=== PATIENT | female | born 1945 | race Caucasian/White ===

== ENCOUNTER 2023-07-02 09:44 | Outpatient (AMB) | payer MEDICARE, SELFPAY ==
--- NOTE | 2023-07-02 09:49 | A.OFFVIS_ITS ---
Intake Vital Signs 07/02/23 09:50 Height 4 ft 11 in Weight 167 lb BMI 33.7 BP 130/64 Blood Pressure Location Lt brachial Position Sitting Pulse 83 Pulse Source Pulse Oximeter Pulse Oximetry (%) 93 Oxygen Delivery Method Nasal Cannula Oxygen Flow Rate 3 Intake Visit Reasons: COPD Intake Note: pt is here for a new patient and she states she has a lot of trouble breathing and a cough that seems to be getting worse, non productive she knows it is there but doesn' come out. Waste Reduction Coordinator Required: No Allergies penicillin G [Penicillin G] Allergy (Unknown, Unverified 07/02/23 10:32) RASH,HIVES Seafood Allergy (Unknown, Uncoded 07/02/23 10:32) THROAT CLOSES Medication List - Last Reconciled 07/02/23 by Kimani Gilbert MD acetaminophen 325 mg PO QID PRN aspirin 325 mg PO DAILY atorvastatin 40 mg PO DAILY promtangaw-dqzdibmo-ttfexktbpd 160-9-4.8 mcg/actuation (Breztri Aerosphere) 2 inhalations inhalation BID calcium carbonate (Calcium) 600 mg PO DAILY docusate sodium 100 mg PO DAILY fluticasone propionate 50 mcg/actuation (Flonase Allergy Relief) 1 spray intranasal DAILY furosemide 20 mg PO DAILY gabapentin 300 mg PO BEDTIME ipratropium-albuterol 0.5 mg-3 mg(2.5 mg base)/3 mL 3 mL inhalation QID PRN loratadine 10 mg PO DAILY multivitamin,tx-minerals 1 tab PO DAILY sacubitril-valsartan 24-26 mg (Entresto) 1 tab PO BID sennosides (senna) 8.6 mg PO BEDTIME Do you need a note to return to daycare/school/sports/work: No HPI COPD HPI Details THIS 77 YEARS OLD FEMALE IS HERE FOR THE 1ST TIME FOR PULMONARY EVALUATION AND, ONGOING FOLLOW-UP. SHE CAME WITH HER SON WHO IS A STATION SUPERINTENDENT IN [facility], AND HE WAS HELPFUL IN OBTAINING THE HISTORY, EVEN THOUGH THE PATIENT HERSELF IS QUITE ALERT AND AWARE OF HER MEDICAL ISSUES. FOR THE PAST FEW YEARS SHE IS LIVING AT AN ASSISTED LIVING FACILITY IN [place], SHE FOLLOWS UP WITH HER PRIMARY CARE PHYSICIAN DR. ARVIZU OF [facility], AND SHE IS ALSO BEING FOLLOWED BY COMMUNITY NURSE , WHO CHECKS ON HER REGULARLY. THIS PATIENT IS MODERATELY OBESE, WITH A ROUND FACE, SHORT NECK, BUT SHE DENIES ANY SLEEP DISORDER, AND WHEN I MENTIONED OBSTRUCTIVE SLEEP APNEA SHE DEFINITELY SAID NO. SHE HAS HISTORY OF SMOKING SINCE THE YOUNGER AGE, HALF PACK A DAY FOR ALMOST 50 YEARS BUT QUIT 20 YEARS AGO. PATIENT WAS ADMITTED TO [facility] TWICE AFTER SOME FALLS, AND DURING 1 OF THE HOSPITALIZATIONS HER O2 SATS REMAINED LOW TO THE POINT THAT SHE HAD TO BE STARTED ON OXYGEN THERAPY. SHE CONTINUES TO USE OXYGEN 24 HOURS A DAY, AT 2 L/MINUTE. SHE HAS HAD 6 MINUTES WALK TEST AT HER PRIMARY CARE PHYSICIAN'S OFFICE. SHE WAS ALSO DIAGNOSED TO HAVE CHRONIC OBSTRUCTIVE PULMONARY DISEASE SINCE A FEW YEARS AGO, AND HAS BEEN TREATED WITH ALMOST MAXIMUM MEDICAL REGIMEN. MEDICAL REGIMEN INCLUDES BREZTRI 2 PUFFS B.I.D., AND DUONEB UPDRAFTS Q.I.D., SHE USES THE UPDRAFTS REGULARLY. SHE SAY IS SHE HAS HAD PULMONARY FUNCTION TEST AT [facility], WE ARE GOING TO TRY TO GET A COPY OF THAT FOR OUR RECORDS. HER BREATHING STATUS HAS REMAINED VERY STABLE, HER MAIN COMPLAINT IS COUGH DUE TO IRRITATION DEEP DOWN IN THE THROAT, SHE HAS DIFFICULT TIME IN CLEARING THE MUCUS. AND SHE ALSO FEELS SHORT OF BREATH WHEN SHE HAS TO WALK FROM THE DINING ROOM TO HER APARTMENT ( IT IS IS SOMEWHAT LONG DISTANCE FOR HER ) BUT AT THE SAME TIME SHE FEELS, THAT IT IS IMPORTANT FOR HER TO DO WALKING DAILY. SO THIS SHORTNESS OF BREATH ON WALKING IS NOT BOTHERING HER MUCH. LATELY SHE HAS HAD NO ACUTE RESPIRATORY INFECTION, AND SHE IS UP TO DATE WITH VACCINES. [facility] Medical History COPD (chronic obstructive pulmonary disease) Hypoxemia Restrictive lung disease Review of Systems Const All systems reviewed & are unremarkable except as noted in HPI and below Eyes Reports no additional complaints ENT Reports no additional complaints Card Denies chest pain, Denies irregular heart rhythm and Denies leg edema Resp Reports as per HPI GI Details: Past history of diverticulitis, status post colon resection with colostomy, which was reversed later on. Reports no additional complaints Reports no additional complaints Musc Reports no additional complaints Skin/Breast Reports system reviewed and no additional complaints, except as documented Neuro Reports no additional complaints Psych Reports no additional complaints Physical Exam Vital Signs: Last Vital Signs Pulse 83 07/02/23 09:50 BP 130/64 07/02/23 09:50 Pulse Ox 93 07/02/23 09:50 Oxygen Delivery Method Nasal Cannula 07/02/23 09:50 Oxygen Flow Rate 3 07/02/23 09:50 BMI result Body Mass Index 33.7 Patient is moderately obese with short neck and round face, Const General: comfortable, no acute distress, alert and awake Orientation/consciousness: patient oriented x3 HEENT Head: Yes normal to inspection General nose exam: No nasal polyps present and No nasal discharge present Face and sinus: Yes sinuses nontender Mouth: oropharynx normal Throat: Yes posterior oropharynx normal Eyes General: appearance normal, both eyes and all related structures Neck Neck: Yes normal visual inspection, Yes no lymphadenopathy, Yes trachea midline and Yes no JVD Thyroid: Thyroid normal Chest Chest palpation & inspection: normal inspection of the chest, normal palpation of entire chest wall and no tenderness Resp Other: Percussion note is the not E perceptible because of obese chest wall. Breath sounds are slightly distant, especially over the basilar areas. She has a few inspiratory crackles over the left base. No wheezes are heard . Cardio Palpation: normal PMI Rate: regular rate Rhythm: regular rhythm Heart sounds: no gallops and no murmurs GI Inspection: Yes other (Scar from previous colon resection and colostomy, abdomen moderately obese.) Palpation (GI): Soft to palpation, Tenderness to palpation present (GI), No hepatosplenomegaly present and Palpable mass present Auscultation: normal bowel sounds Back/Spine/Pelvis Thoracic/Lumbar Spine: thoracic and lumbar spine normal to inspection Skin General skin exam: no rashes or lesions noted Neuro General: patient oriented x3 and no focal motor deficits Cranial nerves: Yes CN's II-XII intact bilaterally Extrem General: Yes normal to inspection, Yes no clubbing, cyanosis or edema and Yes no calf tenderness Psych Appearance: grossly normal and well kempt Speech and movement: Normal speech and movement present Results Reviewed Results Reviewed: CHEST X-RAY IS ORDERED. WE WILL TRY TO GET COPY OF PULMONARY FUNCTION TEST FROM [facility] Assessment & Plan Assessment & Plan (1) COPD (chronic obstructive pulmonary disease): Comment: PATIENT HAS THE HISTORY OF SMOKING ALMOST 50 YEARS. SHE IS BEING TREATED FOR HER OBSTRUCTIVE AIRWAY DISORDER, SEEMS TO BE DOING WELL AT THIS TIME. ADVISED TO CONTINUE THE PRESENT MEDS. BREZTRI 2 PUFFS B.I.D.. IPRATROPIUM-ALBUTEROL SOLUTION IN NEB . Q.I.D., MAY TRY TO CUT IT DOWN TO P.R.N.. RINSE AND GARGLE THE THROAT AFTER EACH USE OF BREZTRI . FOR COUGH THE MAY USE MUCINEX LIQUID OR TABLETS 400 MG B.I.D P.R.N.. Code(s): J44.9 - Chronic obstructive pulmonary disease, unspecified (2) Restrictive lung disease: Comment: BECAUSE OF HER OBESITY I SUSPECT THAT SHE HAS SIGNIFICANT RESTRICTIVE PULMONARY COMPONENT, WE WILL SEE IF WE CAN GET THE REPORT OF PFT AT [facility]. SHE IS ADVISED TO DO DEEP BREATHING EXERCISES 2 OR 3 TIMES A DAY. Code(s): J98.4 - Other disorders of lung (3) Hypoxemia: Comment: SHE HAS BEEN HYPOXEMIC, PROBABLY DUE TO COMBINATION OF OBSTRUCTIVE AND RESTRICTIVE COMPONENTS. IT IS WELL TREATED WITH O2 2 L/MINUTE, SHE DOES HAVE POC . WHICH IS QUITE CONVENIENT . Code(s): R09.02 - Hypoxemia Orders: Orders XR chest 2V Today J44.9 - Chronic obstructive pulmonary disease, unspecified, J98.4 - Other disorders of lung, R09.02 - Hypoxemia Coding Level of Care Code New Pt Level 4 (94102) Diagnoses COPD (chronic obstructive pulmonary disease) J44.9 Restrictive lung disease J98.4 Hypoxemia R09.02
[2023-07-02 09:50] VITALS: BP 130/64; PULSE 83; O2SAT 93; BMI 33.7
== END 2023-07-02 10:28 | disposition home or self-care (01) ==
PROVIDERS: PCP Internal Medicine; Visit Provider Internal Medicine
DX: J44.9 Chronic obstructive pulmonary disease, unspecified (principal); J98.4 Other disorders of lung; R09.02 Hypoxemia
CPT/HCPCS: 99204

== ENCOUNTER 2023-07-02 09:44 | Outpatient (REF) | payer MEDICARE, SELFPAY ==
--- NOTE | ~2023-07-02 | XR_ITS ---
EXAMINATION: XR CHEST CLINICAL INFORMATION: Hypoxemia COMPARISON: None available. TECHNIQUE: 2 views of the chest were obtained. FINDINGS: The lungs are somewhat expanded with patchy opacity seen in the left lung base likely atelectasis or scarring. The heart size and pulmonary vascularity is normal. There are multiple cardiac right upper rib fractures, likely old. There are no recent chest x-ray available for comparison XR/XR chest 2V IMPRESSION: 1. Patchy opacity left lung base likely atelectasis or scarring. 2. Multiple right rib fractures, question old. No chest x-ray and right rib films available for comparison
== END 2023-07-02 09:45 | disposition home or self-care (01) ==
LOC: HO.XRAY 09:44
PROVIDERS: PCP Internal Medicine; Visit Provider Internal Medicine
DX: J44.9 Chronic obstructive pulmonary disease, unspecified (principal); J98.4 Other disorders of lung; R09.02 Hypoxemia
CPT/HCPCS: 71046; 99202

== ENCOUNTER 2023-08-19 13:55 | Outpatient (AMB) | payer MEDICARE, SELFPAY ==
--- NOTE | 2023-08-19 14:07 | A.OFFVIS_ITS ---
Intake Vital Signs 08/19/23 14:09 Height 4 ft 11 in Weight 164 lb BMI 33.1 BP 124/60 Blood Pressure Location Lt brachial Position Sitting Pulse 80 Pulse Source Pulse Oximeter Pulse Oximetry (%) 91 L Oxygen Delivery Method Nasal Cannula Oxygen Flow Rate 3 Intake Visit Reasons: copd Intake Note: pt is here for follow up and states she is feeling okay, and at her baseline. Plans Examiner Required: No Allergies penicillin G [Penicillin G] Allergy (Unknown, Unverified 08/19/23 14:39) RASH,HIVES Seafood Allergy (Unknown, Uncoded 08/19/23 14:39) THROAT CLOSES Medication List - Last Reconciled 08/19/23 by Kimani Gilbert MD acetaminophen 325 mg PO QID PRN aspirin 325 mg PO DAILY atorvastatin 40 mg PO DAILY akzmmvumjq-ijdwmkty-tcucmtvwmc 160-9-4.8 mcg/actuation (Breztri Aerosphere) 2 inhalations inhalation BID calcium carbonate (Calcium) 600 mg PO DAILY docusate sodium 100 mg PO DAILY fluticasone propionate 50 mcg/actuation (Flonase Allergy Relief) 1 spray intranasal DAILY furosemide 20 mg PO DAILY gabapentin 300 mg PO BEDTIME ipratropium-albuterol 0.5 mg-3 mg(2.5 mg base)/3 mL 3 mL inhalation QID PRN loratadine 10 mg PO DAILY multivitamin,tx-minerals 1 tab PO DAILY sacubitril-valsartan 24-26 mg (Entresto) 1 tab PO BID sennosides (senna) 8.6 mg PO BEDTIME Do you need a note to return to daycare/school/sports/work: No HPI copd HPI Details Clara is a very pleasant 78 years old female, who lives is an assisted living place, Is here today for follow-up after her initial visit in June. She is on O2 24 hours a day, She uses Breztri 2 inhalations b.i.d., and also DuoNeb. Updrafts 3 times a day as needed Lately she has been out of Breztri ,waitin for her supply to come and she can notice that she is more short of breath with more frequent cough. Otherwise she seems to be at her baseline. [facility] Medical History Hypoxemia Restrictive lung disease COPD (chronic obstructive pulmonary disease) Review of Systems Const All systems reviewed & are unremarkable except as noted in HPI and below Eyes Reports no additional complaints ENT Reports no additional complaints Card Denies chest pain, Denies irregular heart rhythm and Denies leg edema Resp Reports as per HPI GI Details: Past history of diverticulitis, status post colon resection with colostomy, which was reversed later on. Reports no additional complaints Reports no additional complaints Musc Reports no additional complaints Skin/Breast Reports system reviewed and no additional complaints, except as documented Neuro Reports no additional complaints Psych Reports no additional complaints Physical Exam Vital Signs: Last Vital Signs Pulse 80 08/19/23 14:09 BP 124/60 08/19/23 14:09 Pulse Ox 91 L 08/19/23 14:09 Oxygen Delivery Method Nasal Cannula 08/19/23 14:09 Oxygen Flow Rate 3 08/19/23 14:09 BMI result Body Mass Index 33.1 Patient is moderately obese with short neck and round face, Const General: comfortable, no acute distress, alert and awake Orientation/consciousness: patient oriented x3 HEENT Head: Yes normal to inspection General nose exam: No nasal polyps present and No nasal discharge present Face and sinus: Yes sinuses nontender Mouth: oropharynx normal Throat: Yes posterior oropharynx normal Eyes General: appearance normal, both eyes and all related structures Neck Neck: Yes normal visual inspection, Yes no lymphadenopathy, Yes trachea midline and Yes no JVD Thyroid: Thyroid normal Chest Chest palpation & inspection: normal inspection of the chest, normal palpation of entire chest wall and no tenderness Resp Other: Percussion note is the not E perceptible because of obese chest wall. Breath sounds are slightly distant, especially over the basilar areas. She has a few inspiratory crackles over the left base. No wheezes are heard . Cardio Palpation: normal PMI Rate: regular rate Rhythm: regular rhythm Heart sounds: no gallops and no murmurs GI Inspection: Yes other (Scar from previous colon resection and colostomy, abdomen moderately obese.) Palpation (GI): Soft to palpation, Tenderness to palpation present (GI), No hepatosplenomegaly present and Palpable mass present Auscultation: normal bowel sounds Back/Spine/Pelvis Thoracic/Lumbar Spine: thoracic and lumbar spine normal to inspection Skin General skin exam: no rashes or lesions noted Neuro General: patient oriented x3 and no focal motor deficits Cranial nerves: Yes CN's II-XII intact bilaterally Extrem General: Yes normal to inspection, Yes no clubbing, cyanosis or edema and Yes no calf tenderness Psych Appearance: grossly normal and well kempt Speech and movement: Normal speech and movement present Results Reviewed Results Reviewed: SPIROMETRY ATTEMPTED IN THE OFFICE TODAY. SHE DID MAKE GOOD EFFORT. THE RESULTS ARE FOLLOWS: FVC 43%, FEV1 39%. FEV1/FVC RATIO 69, [id number] = 28% C/W SEVERE RESTRICTIVE LUNG DISORDER, AND OBSTRUCTIVE AIRWAY DISORDER. COMPARED TO THE RESULTS OF SPIROMETRY AT [facility] ON 12/15/2017, THERE IS FURTHER DECLINE IN THE FLOW VOLUMES. Assessment & Plan Assessment & Plan (1) COPD (chronic obstructive pulmonary disease): Comment: PATIENT HAS THE HISTORY OF SMOKING ALMOST 50 YEARS. COULD NOT DO COMPLETE PFT. SPIROMETRY FINDINGS INDICATE A RATHER SEVERE OBSTRUCTIVE AIRWAY DISORDER. [place] : BREZTRI 2 PUFFS B.I.D.. IPRATROPIUM-ALBUTEROL SOLUTION IN NEB . TID AND Q 6 HOURS P.R.N. RINSE AND GARGLE THE THROAT AFTER EACH USE OF BREZTRI . FOR COUGH THE MAY USE MUCINEX LIQUID OR TABLETS 400 MG B.I.D P.R.N.. Code(s): J44.9 - Chronic obstructive pulmonary disease, unspecified (2) Restrictive lung disease: Comment: BECAUSE OF HER OBESITY SHE HAS SEVERE RESTRICTIVE PULMONARY DISORDER. TX: CONTINUE TO DO DEEP BREATHING EXERCISES WITH INCENTIVE SPIROMETRY . AT LEAST 3 TIMES A DAY CONTINUE TO USE ACAPELA WELL 3 TIMES A DAY Code(s): J98.4 - Other disorders of lung (3) Hypoxemia: Comment: SHE HAS BEEN HYPOXEMIC, PROBABLY DUE TO COMBINATION OF OBSTRUCTIVE AND RESTRICTIVE COMPONENTS. IT IS WELL TREATED WITH O2 2 L/MINUTE, SHE DOES HAVE POC . WHICH IS QUITE CONVENIENT . Code(s): R09.02 - Hypoxemia Coding Level of Care Code Est Pt Level 4 (94145) Diagnoses COPD (chronic obstructive pulmonary disease) J44.9 Restrictive lung disease J98.4 Hypoxemia R09.02
[2023-08-19 14:09] VITALS: BP 124/60; PULSE 80; O2SAT 91; BMI 33.1
== END 2023-08-19 15:05 | disposition home or self-care (01) ==
PROVIDERS: PCP Internal Medicine; Visit Provider Internal Medicine
DX: J44.9 Chronic obstructive pulmonary disease, unspecified (principal); J98.4 Other disorders of lung; R09.02 Hypoxemia
CPT/HCPCS: 99214

== ENCOUNTER → 2023-08-19 13:55 | Outpatient (BNVA) | payer MEDICARE, SELFPAY | PROVIDERS: PCP Internal Medicine; Visit Provider Internal Medicine | DX: J44.9 Chronic obstructive pulmonary disease, unspecified (principal); J98.4 Other disorders of lung; R09.02 Hypoxemia | CPT/HCPCS: 99212 ==

== ENCOUNTER 2024-09-20 10:08 | Outpatient (AMB) | payer MEDICARE, SELFPAY ==
[2024-09-20 10:13] VITALS: BP 162/78; PULSE 101; RESP 16; O2SAT 92; BMI 34.1
--- NOTE | 2024-09-20 10:13 | A.OFFVIS_ITS ---
Vital Signs 09/20/24 10:13 Height 4 ft 10 in Weight 163 lb BMI 34.1 BP 162/78 H Blood Pressure Location Lt brachial Position Sitting Respiration 16 Pulse 101 H Pulse Source Pulse Oximeter Pulse Oximetry (%) 92 Oxygen Delivery Method Nasal Cannula Intake Visit Reasons: COPD Allergies penicillin G [Penicillin G] Allergy (Unknown, Verified 09/20/24 10:36) RASH,HIVES Seafood Allergy (Unknown, Uncoded 09/20/24 10:36) THROAT CLOSES Medication List - Last Reconciled 09/20/24 by Kimani Gilbert MD acetaminophen 325 mg PO QID PRN aspirin 325 mg PO DAILY atorvastatin 40 mg PO DAILY ogsstvldxg-oivuehjq-wkofqqbqvw 160-9-4.8 mcg/actuation (Breztri Aerosphere) 2 inhalations inhalation BID calcium carbonate (Calcium 600) 600 mg PO DAILY docusate sodium 100 mg PO DAILY fluticasone propionate 50 mcg/actuation (Flonase Allergy Relief) 1 spray intranasal DAILY furosemide 20 mg PO DAILY ipratropium-albuterol 0.5 mg-3 mg(2.5 mg base)/3 mL 3 mL inhalation QID PRN loratadine 10 mg PO DAILY multivitamin,tx-minerals 1 tab PO DAILY sacubitril-valsartan 24-26 mg (Entresto) 1 tab PO BID sennosides (senna) 8.6 mg PO BEDTIME Do you need a note to return to daycare/school/sports/work: No HPI HPI COPD: Details: This 79 years old very pleasant female, is coming for routine follow-up after 1 year. She lives in an assisted living place, She has advanced chronic obstructive pulmonary disease as well as restrictive lung disease, with chronic hypoxemic respiratory failure. At the facility she gets around with the walker using portable O2. In her own apartment unit she is using stationary O2 all the times. She tries to stay away from any sick %. And luckily during the past 1 year she has had no acute respiratory infection or exacerbation. She claims that her respiratory status has remained very stable. Of course she does get short of breath on minimal walking and also has mild intermittent cough. [facility] Medical History Hypoxemia Restrictive lung disease COPD (chronic obstructive pulmonary disease) Review of Systems Const All systems reviewed & are unremarkable except as noted in HPI and below Eyes Reports no additional complaints ENT Reports no additional complaints Card Denies chest pain, Denies irregular heart rhythm and Denies leg edema Resp Reports as per HPI GI Details: Past history of diverticulitis, status post colon resection with colostomy, which was reversed later on. Reports no additional complaints Reports no additional complaints Musc Reports no additional complaints Skin/Breast Reports system reviewed and no additional complaints, except as documented Neuro Reports no additional complaints Psych Reports no additional complaints Physical Exam Vital Signs: Last Vital Signs Pulse 101 H 09/20/24 10:13 Resp 16 09/20/24 10:13 BP 162/78 H 09/20/24 10:13 Pulse Ox 92 09/20/24 10:13 Oxygen Delivery Method Nasal Cannula 09/20/24 10:13 BMI result Body Mass Index 34.1 Patient is moderately obese with short neck and round face, Const General: comfortable, no acute distress, alert and awake Orientation/consciousness: patient oriented x3 HEENT Head: Yes normal to inspection General nose exam: No nasal polyps present and No nasal discharge present Face and sinus: Yes sinuses nontender Mouth: oropharynx normal Throat: Yes posterior oropharynx normal Eyes General: appearance normal, both eyes and all related structures Neck Neck: Yes normal visual inspection, Yes no lymphadenopathy, Yes trachea midline and Yes no JVD Thyroid: Thyroid normal Chest Chest palpation & inspection: normal inspection of the chest, normal palpation of entire chest wall and no tenderness Resp Other: Percussion note is the not E perceptible because of obese chest wall. Breath sounds are quite distant, especially over the basilar areas. No wheezes or crepitations are heard today. Cardio Palpation: normal PMI Rate: regular rate Rhythm: regular rhythm Heart sounds: no gallops and no murmurs GI Inspection: Yes other (Scar from previous colon resection and colostomy, abdomen moderately obese.) Palpation (GI): Soft to palpation, Tenderness to palpation present (GI), No hepa tosplenomegaly present and Palpable mass present Auscultation: normal bowel sounds Back/Spine/Pelvis Thoracic/Lumbar Spine: thoracic and lumbar spine normal to inspection Skin General skin exam: no rashes or lesions noted Neuro General: patient oriented x3 and no focal motor deficits Cranial nerves: Yes CN's II-XII intact bilaterally Extrem General: Yes normal to inspection, Yes no clubbing, cyanosis or edema and Yes no calf tenderness Psych Appearance: grossly normal and well kempt Speech and movement: Normal speech and movement present Assessment & Plan Assessment & Plan (1) COPD (chronic obstructive pulmonary disease): Comment: PATIENT HAS THE HISTORY OF SMOKING ALMOST 50 YEARS. COULD NOT DO COMPLETE PFT. SPIROMETRY FINDINGS INDICATED A RATHER SEVERE OBSTRUCTIVE AIRWAY DISORDER. Code(s): J44.9 - Chronic obstructive pulmonary disease, unspecified Category: Medical Plan: TX : BREZTRI 2 PUFFS B.I.D.. IPRATROPIUM-ALBUTEROL SOLUTION IN NEB TID AND Q 6 HOURS P.R.N. RINSE AND GARGLE THE THROAT AFTER EACH USE OF BREZTRI . FOR COUGH SHE MAY USE MUCINEX LIQUID OR TABLETS 400 MG B.I.D P.R.N.. (2) Restrictive lung disease: Comment: BECAUSE OF HER OBESITY SHE HAS SEVERE RESTRICTIVE PULMONARY DISORDER IN ADDITION TO COPD . Code(s): J98.4 - Other disorders of lung Category: Medical Plan: TX: CONTINUE TO DO DEEP BREATHING EXERCISES WITH INCENTIVE SPIROMETRY . AT LEAST 3 TIMES A DAY CONTINUE TO USE ACAPELA VALVE 3 TIMES A DAY (3) Hypoxemia: Comment: SHE HAS BEEN HYPOXEMIC, PROBABLY DUE TO COMBINATION OF OBSTRUCTIVE AND RESTRIC TIVE COMPONENTS. IT IS WELL TREATED WITH O2 4 L/MINUTE, SHE DOES HAVE POC WHICH IS QUITE CONVENIENT . Code(s): R09.02 - Hypoxemia Category: Medical Plan: CONTINUE O2 4 L/MINUTE 24 HOURS A DAY. WHEN AT HOME WITH A STATIONARY CONCENTRATOR SHE MAY USE O2 AT 3-4 L/MINUTE. THE GOAL IS TO KEEP O2 SAT JUST ABOVE 90%. WHEN GOING OUTDOORS USE POC AT RATE OF 4 L/MINUTE. Coding Level of Care Code Est Pt Level 3 (28664) Diagnoses COPD (chronic obstructive pulmonary disease) J44.9 Restrictive lung disease J98.4 Hypoxemia R09.02
== END 2024-09-20 11:50 | disposition home or self-care (01) ==
PROVIDERS: PCP Internal Medicine; Visit Provider Internal Medicine
DX: J44.9 Chronic obstructive pulmonary disease, unspecified (principal); J98.4 Other disorders of lung; R09.02 Hypoxemia
CPT/HCPCS: 99213

== ENCOUNTER → 2024-09-20 10:08 | Outpatient (BNVA) | payer MEDICARE, SELFPAY | PROVIDERS: PCP Internal Medicine; Visit Provider Internal Medicine | DX: J44.9 Chronic obstructive pulmonary disease, unspecified (principal); J96.11 Chronic respiratory failure with hypoxia; J98.4 Other disorders of lung; Z99.81 Dependence on supplemental oxygen | CPT/HCPCS: 99212 ==